=== PATIENT | male | born 1970 | race Caucasian/White ===

== ENCOUNTER 2018-07-20 20:53 | Emergency (ER) | payer OTHER ==
[~2018-07-20] VITALS: Ht 177.8 cm; Wt 87.5 kg
[2018-07-20 21:00] VITALS: Ht 177.8 cm; Wt 87.5 kg
[2018-07-20 21:36] VITALS: BP 165/87
== END 2018-07-20 21:36 | disposition home or self-care (01) ==
LOC: ED 20:53
DX: I10 Essential (primary) hypertension (principal); Z86.73 Personal history of transient ischemic attack (TIA), and cerebral infarction without residual deficits

== ENCOUNTER 2018-08-15 12:01 | Emergency (ER) | payer OTHER ==
[~2018-08-15] VITALS: Ht 175.3 cm; Wt 85.3 kg
[2018-08-15 12:59] LABS: BASOPHIL % 0.6 % (0-2); PLATELET COUNT 214 x10^3mcL (130-400); RED CELL DISTRIBUTION WIDTH 13.9 % (11.5-14.5)
[2018-08-15 13:10] LABS: CALCIUM 9.3 mg/dL (8.5-10.1); CARBON DIOXIDE 26.7 mmol/L (21-32); CHLORIDE SERUM 105 mmol/L (98-107); CREATININE SERUM 1.3 mg/dL (0.7-1.3); GFR1 > 60 mL/min; GLUCOSE SERUM 109 mg/dL (74-106); POTASSIUM SERUM 3.9 mmol/L (3.5-5.1); SODIUM SERUM 142 mmol/L (136-145)
[2018-08-15 13:12] LABS: ALBUMIN 3.8 g/dL (3.4-5.0); ALKALINE PHOSPHATASE 81 U/L (46-116); ALT/SGPT 18 U/L (16-63); AST/SGOT 13 U/L (15-37); BILIRUBIN TOTAL 0.36 mg/dL (0.20-1.00); TOTAL PROTEIN, SERUM 7.6 g/dL (6.4-8.2)
[2018-08-15 13:28] VITALS: BP 134/72
== END 2018-08-15 13:28 | disposition short-term general hospital (02) ==
LOC: ED 12:01
PROVIDERS: Emergency Medicine
DX: I63.9 Cerebral infarction, unspecified (principal); I10 Essential (primary) hypertension; Z98.890 Other specified postprocedural states
CPT/HCPCS: 36415